=== PATIENT | male | born 1965 | race Caucasian/White ===

== ENCOUNTER 2021-08-04 15:32 | Emergency (ER) | payer SELFPAY ==
[~2021-08-04] VITALS: Ht 188 cm; Wt 128.4 kg
--- NOTE | 2021-08-04 15:32 | NUR ---
BIBFAMILY C/O LEFT FACIAL DROOP STARTED 2AM TODAY, DENIES ANY WEAKNESS. PT IS A&OX4 AND STABLE. VITALS ARE WITHIN NORMAL LIMITS. BREATHING IS REGULAR AND UNLABORED. PT WAS ATTCHED TO [facility]PER AND PULSE OX. WILL CONTINUE TO MONITOR.
--- NOTE | 2021-08-04 15:47 | NUR ---
LAB AT BEDSIDE
--- NOTE | 2021-08-04 15:54 | NUR ---
DR SANCHEZ AT BEDSIDE
[2021-08-04 16:14] LABS: BASOPHILS # (AUTO) 0.1 K/uL (0.0-0.2); BASOPHILS % (AUTO) 0.7 % (0.0-2.0); EOSINOPHILS % (AUTO) 2.4 % (0.0-6.0); HEMATOCRIT 45 % (39-51); HEMOGLOBIN 15.1 g/dL (13.5-17.5); LYMPHOCYTES # (AUTO) 2.7 K/uL (0.8-4.8); LYMPHOCYTES % (AUTO) 33.3 % (20.0-44.0); MEAN CORPUSCULAR HGB CONC 34 g/dl (31.0-36.0); MEAN CORPUSCULAR VOLUME 88 fL (80-96); MONOCYTES # (AUTO) 0.8 K/uL (0.1-1.30); MONOCYTES % (AUTO) 9.6 % (2.0-12.0); NEUTROPHILS # (AUTO) 4.4 K/uL (1.8-8.9); PLATELET COUNT (AUTO) 245 K/uL (150-450); RED BLOOD CELL COUNT(AUTO) 5.09 MIL/uL (4.5-6.0); WHITE BLOOD COUNT (AUTO) 8.1 K/uL (4.3-11.0)
[2021-08-04 16:26] LABS: CALCIUM, SERUM 8.5 mg/dL (8.5-10.1); CREATININE 1.1 mg/dL (0.6-1.3); POTASSIUM 4.5 mmol/L (3.5-5.1)
[2021-08-04] MEDS ORDERED: predniSONE 50 MG TABLET PO ONE (17:30)
[2021-08-04] MEDS ORDERED: VALACYCLOVIR HCL 500 MG TABLET PO ONE (17:30)
[2021-08-04] MEDS ORDERED: predniSONE 20 MG TABLET ONE (17:31)
[2021-08-04] MEDS ORDERED: VALACYCLOVIR HCL 500 MG TABLET ONE (17:32)
[2021-08-04] MEDS ORDERED: ACETAMINOPHEN 325 MG TABLET PO ONE (18:00)
[2021-08-04] MEDS ORDERED: VALA10002 PO (18:09)
[2021-08-04] MEDS ORDERED: PRED20TA PO (18:09)
--- NOTE | 2021-08-04 18:24 | NUR ---
Patient discharged to home in stable condition. Written and verbal after care instructions given. Patient verbalizes understanding of instruction.
[2021-08-04 18:38] VITALS: BP 124/84
== END 2021-08-04 18:24 | disposition home or self-care (01) ==
LOC: ER 15:51
DX: G51.0 Bell's palsy (principal)
CPT/HCPCS: 36415; 70450; 80048; 85025; 99284; J7512